=== PATIENT | male | born 1970 | race Caucasian/White ===

== ENCOUNTER 2018-12-14 06:39 | Inpatient (IN) ==
[2018-12-10 09:00] LABS: HEMATOCRIT 46.5 % (42.0-52.0); MCH 32.5 PG (27-31); MCHC 34.4 g/dL (33-37); MCV 94.3 FL (81-99); MPV 10.1 FL (7.4-10.4); RBC 4.93 XMIL (4.7-6.1); RDW 13.4 % (11.5-14.5); WBC 6.31 X1000 (4.8-10.8)
--- NOTE | 2018-12-10 09:11 | EKG Report ---
Test Performed on : 12/10/2018 08:20:32 AM Test Reason : pat Blood Pressure : / mmHG Vent. Rate : 092 BPM Atrial Rate : 092 BPM P-R Int : 152 ms QRS Dur : 082 ms QT Int : 346 ms P-R-T Axes : 023 034 047 degrees QTc Int : 427 ms Normal sinus rhythm. Normal ECG No previous ECGs available Confirmed by Mendoza Carrera MD ([id number]) on 12/10/2018 12:49:14 PM
[2018-12-10 09:54] LABS: AGAP 11; BUN 12 mg/dL (8-22); CALCIUM 8.9 mg/dL (8.8-10.2); CHLORIDE 100 mmol/L (98-107); COSMO 276; CREATININE 0.7 mg/dL (0.7-1.2); ESTIMATED GFR > 60; GLUCOSE 114 mg/dL (70-104); POTASSIUM 3.9 mmol/L (3.5-5.1); SODIUM 138 mmol/L (136-145); TCO2 27 mmol/L (25-35)
[2018-12-14] MEDS ORDERED: PEPCID ONE (06:55)
[2018-12-14] MEDS ORDERED: REGLAN ONE (06:55)
[2018-12-14] MEDS ORDERED: LR 1,000 ML ONE ×2 (06:55→09:02)
[2018-12-14] MEDS ORDERED: ENTEREG ONE (06:55)
[2018-12-14] MEDS ORDERED: INVANZ 1 GM/NS 1 GM/50 ML IVPB ONE (06:55)
[2018-12-14] MEDS ORDERED: LOPRESSOR ONE (07:23)
[2018-12-14] MEDS ORDERED: DIPRIVAN 1% ONE (07:53)
[2018-12-14] MEDS ORDERED: XYLOCAINE-MPF 2% ONE (08:05)
[2018-12-14] MEDS ORDERED: SODIUM CHLORIDE 0.9% 10 ML ONE (08:07)
[2018-12-14] MEDS ORDERED: QUELICIN (DOSE) ONE (08:07)
[2018-12-14] MEDS ORDERED: NORCURON ONE (08:07)
[2018-12-14] MEDS ORDERED: VERSED ONE (08:12)
[2018-12-14] MEDS ORDERED: MARCAINE 0.25% PF/EPI 1:200,000 ONE (09:02)
[2018-12-14] MEDS ORDERED: FENTANYL ONE (09:16)
[2018-12-14] MEDS ORDERED: DECADRON ONE (09:17)
[2018-12-14] MEDS ORDERED: TORADOL ONE (09:17)
[2018-12-14] MEDS ORDERED: ZOFRAN ONE (09:17)
[2018-12-14] MEDS ORDERED: OFIRMEV 1000 MG/ISOTONIC SOLN 1,000 MG/100 ML BOTTLE ONE (09:17)
[2018-12-14] MEDS ORDERED: LTA KIT ONE (09:32)
[2018-12-14 10:02] LABS: URINE SOURCE CATH
[2018-12-14 10:12] LABS: BILIRUBIN URINE NEGATIVE (NEGATIVE); BLOOD URINE NEGATIVE (NEGATIVE); COLOR YELLOW; GLUCOSE URINE NEGATIVE (NEGATIVE); KETONE URINE TRACE mg/dL (NEGATIVE); LEUKOCYTES URINE NEGATIVE (NEGATIVE); NITRITE URINE NEGATIVE (NEGATIVE); PROTEIN URINE 30 mg/dL (NEGATIVE); TURBIDITY URINE CLEAR (CLEAR); UROBILINOGEN URINE NORMAL (NORMAL)
[2018-12-14 10:13] LABS: UR EPITHELIAL CELLS <10 /HPF (<10); URINE BACTERIA NEGATIVE /HPF; URINE RBC <10 /HPF (<10); URINE WBC <10 /HPF (<10)
[2018-12-14] MEDS ORDERED: ROBINUL ONE (10:50)
[2018-12-14] MEDS ORDERED: NEOSTIGMINE ONE (10:51)
[2018-12-14] MEDS: DILAUDID ONE ×2 (11:25→11:30)
[2018-12-14] MEDS ORDERED: NS 1,000 ML ONE (11:56)
[2018-12-14] MEDS ORDERED: ZOFRAN IV PRN (12:13)
[2018-12-14] MEDS: DILAUDID IV PRN ×4 (13:09→23:22)
[2018-12-14] MEDS: NS 1,000 ML IV SCH ×2 (13:13→23:46)
[2018-12-14] MEDS: OFIRMEV 1000 MG/ISOTONIC SOLN 1,000 MG/100 ML BOTTLE IV SCH ×2 (17:01→21:08)
--- NOTE | 2018-12-14 18:53 | OPERATIVE NOTE ---
PROCEDURE DATE: 12/14/2018 PROCEDURE PERFORMED: Laparoscopic assisted cecal resection with ileocolostomy. SURGEON: Ajay Hebert MD. COMPUTER OPERATIONS TECHNICIAN: JERRY Sandoval. 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 POSTOPERATIVE DIAGNOSIS: Villous adenoma of the cecum. DESCRIPTION OF PROCEDURE: Satisfactory general endotracheal anesthesia was achieved. The abdomen was prepped and draped in a sterile fashion. We anesthetized the skin just above the umbilicus. Then used an 11 trocar Optiview technique into the abdominal cavity. We insufflated through this trocar. Under direct visualization, we introduced a 5 trocar in the mid hypogastrium, a 5 trocar in the right lower quadrant and an 11 mm trocar in the midepigastrium. We placed the patient in Trendelenburg and turned him to the left. We identified the cecum. We divided the adhesions to the anterior abdominal wall, then incised along the white line of Toldt, first going caudad to free up the ilium. We then placed the patient in reverse Trendelenburg and went cephalad until we actually freed up the hepatic flexure. We used the LigaSure along the course of the white line of Toldt in order to mobilize the right colon in the ileum. As I said, we did mobilize the hepatic flexure as well. After we had felt that the right colon was adequately mobilized, we could see the duodenum. We then flattened the patient, and I anesthetized the skin in a transverse fashion in the right lower quadrant. We incised the skin, and carried our incision through the subcutaneous fat through Zeke fascia. We exposed the external oblique aponeurosis. We incised it along with some of the muscle. The internal oblique muscle was spread and the transversus muscle was spread. We entered the abdominal cavity. We were able to place our retractors, the cecum was right under us, so we used a Ernst to deliver it out of the abdominal cavity. We had adequate length of ilium and adequate length of right colon. We then cleaned off the ileum and divided it with a MEGHA-80 blue cartridge. We cleaned off the proximal cecum so that we could put our finger through the mesentery and we divided the ilium as well. We then divided the mesentery with the LigaSure and the specimen was placed in the back table. I did inspect the specimen, opened it and the villous lesion was identified within the specimen. I changed gloves at this point. We then laid the right colon next to the ilium, placed a stitch to bring those together. We cut off the corners of each of the respective ends of bowel and then introduced the MEGHA blue cartridge 80 mm long and did a [id number] stapled anastomosis. We placed a 3-0 silk at the opposite end to take the tension off the staple line. We grasped the open ends of bowel with the Allis and used a TA-60 blue cartridge in order to staple off the open end of the bowel. We then used 3-0 silk pop-off's to invert the staple line. We had a good staple [id number] anastomosis, which we then dropped back into the abdominal cavity. We closed the peritoneum with a running 2-0 Polysorb. We closed the transversus with a running 2-0 Polysorb along with the internal oblique muscle. We then closed with the 0. The external oblique aponeurosis with interrupted 0 Polysorb in the [id number] fashion. Subcutaneous tissue was irrigated out. We placed 3-0 Polysorb in the subcutaneous tissue and then closed the skin with wali. We reinsufflated and reintroduced the camera. We looked inside and the anastomosis was okay. There was no evidence of bleeding. We then used a Candelario-Sherine wound closure for the epigastric trocar site and the supraumbilical trocar site, passing a 2-0 Polysorb through the abdominal wall. We then desufflated, removed all our trocars. We secured those 2 fascial stitches, placed by the Candelario-Sherine device. We then closed the skin each in the laparoscopic incisions with 4-0 Polysorb subcuticular stitches. Sterile OpSite's were applied. He tolerated it well. Was sent to the recovery room in satisfactory condition. cc: MD Shivam Shearer DO
[2018-12-14] MEDS: PERIDEX MT SCH (20:58)
[2018-12-14] MEDS: LOVENOX SUBQ SCH (20:58)
[2018-12-14] MEDS: DESYREL PO SCH (20:58)
[2018-12-15] MEDS: DILAUDID IV PRN ×7 (02:24→21:32)
[2018-12-15] MEDS: OFIRMEV 1000 MG/ISOTONIC SOLN 1,000 MG/100 ML BOTTLE IV SCH ×3 (02:24→11:03)
[2018-12-15 06:51] LABS: BASO# 0.01 X1000 (0.0-0.2); BASO% 0.1 % (0.0-0.8); HEMATOCRIT 42.5 % (42.0-52.0); HEMOGLOBIN 14.4 g/dL (14.0-18.0); IMM GRAN# 0.02 X1000 (0.0-0.04); IMM GRAN% 0.2 % (0.0-0.5); LYMPH# 1.07 X1000 (1.2-3.4); LYMPH% 8.9 % (20.5-51.1); MCH 32.6 PG (27-31); MCHC 33.9 g/dL (33-37); MCV 96.2 FL (81-99); MONO# 0.93 X1000 (0.11-0.59); MONO% 7.7 % (1.7-9.3); MPV 10.1 FL (7.4-10.4); NEUT# 10.06 X1000 (1.4-6.5); NEUT% 83.1 % (42.2-75.2); PLT 194 X1000 (130-400); RBC 4.42 XMIL (4.7-6.1); RDW 13.5 % (11.5-14.5); WBC 12.09 X1000 (4.8-10.8)
[2018-12-15 07:10] LABS: AGAP 10; BUN 14 mg/dL (8-22); CALCIUM 8.6 mg/dL (8.8-10.2); CHLORIDE 104 mmol/L (98-107); COSMO 283; CREATININE 0.7 mg/dL (0.7-1.2); ESTIMATED GFR > 60; GLUCOSE 119 mg/dL (70-104); SODIUM 141 mmol/L (136-145); TCO2 27 mmol/L (25-35)
[2018-12-15] MEDS: NS 1,000 ML IV SCH ×3 (08:28→21:32)
[2018-12-15] MEDS: ENTEREG PO SCH ×2 (11:04→21:32)
[2018-12-15] MEDS: LOPRESSOR PO SCH (11:04)
[2018-12-15] MEDS: PERIDEX MT SCH ×2 (11:05→21:32)
[2018-12-15] MEDS: PRINZIDE 10/12.5MG PO SCH (11:05)
[2018-12-15] MEDS: PRAVACHOL PO SCH (21:31)
[2018-12-15] MEDS: DESYREL PO SCH (21:32)
[2018-12-15] MEDS: LOVENOX SUBQ SCH (21:32)
[2018-12-16] MEDS: DILAUDID IV PRN ×4 (02:20→20:16)
--- NOTE | 2018-12-16 06:09 | GENERAL SURGERY PROGRESS NOTE ---
DATE: 12/15/2018 SUBJECTIVE: He is doing well. No fevers, no tachycardia overnight. OBJECTIVE: Blood pressure 139/68. Abdomen is soft. Dressing is clean. LABS: Urine is clear. White count 12, hematocrit 42. Creatinine 0.7. ASSESSMENT AND PLAN: This is a 48-year-old gentleman status post ileocecectomy, doing well. 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 Will discontinue his Elizabeth today. I have encouraged him to be out of bed and ambulating. Plan to advance his diet and let him go home with return of bowel function. cc: MD Ajay Chu MD
[2018-12-16] MEDS: PERIDEX MT SCH ×2 (09:24→20:15)
[2018-12-16] MEDS: LOPRESSOR PO SCH (09:24)
[2018-12-16] MEDS: PRINZIDE 10/12.5MG PO SCH (09:25)
[2018-12-16] MEDS: ENTEREG PO SCH ×2 (09:25→20:15)
[2018-12-16] MEDS: NS 1,000 ML IV SCH ×2 (09:27→20:16)
[2018-12-16] MEDS: PRAVACHOL PO SCH (20:15)
[2018-12-16] MEDS: DESYREL PO SCH (20:15)
[2018-12-16] MEDS: LOVENOX SUBQ SCH (20:16)
--- NOTE | 2018-12-16 21:25 | GENERAL SURGERY PROGRESS NOTE ---
DATE: 12/16/2018 SUBJECTIVE: He is ambulating, pains okay. He is tolerating liquids. He is on Lovenox PPI. He has not had any return of flatus yet. He is on Entereg. OBJECTIVE: Vital Signs: No fevers. No tachycardia. Exam: His incisions are intact, with no cellulitis. His abdomen is obese, mildly distended. ASSESSMENT AND PLAN: A 48-year-old gentleman status post right colectomy. He is doing well overall, but we are just awaiting return of bowel function. He is voiding. When he passes gas we will let him go home. cc: MD Ajay Chu MD
[2018-12-17] MEDS: DILAUDID IV PRN (01:04)
[2018-12-17 07:34] VITALS: BP 135/74
[2018-12-17] MEDS: LOPRESSOR PO SCH (07:44)
[2018-12-17] MEDS: PRINZIDE 10/12.5MG PO SCH (07:44)
[2018-12-17] MEDS: PERIDEX MT SCH (07:44)
--- NOTE | 2018-12-17 10:06 | GENERAL SURGERY PROGRESS NOTE ---
DATE: 12/17/2018 Mr. Purdy is now 3 days after his cecal resection. His temperature is 99.3 degrees, heart rate is 93, blood pressure 133/60. He is passing some liquid stool now. He has been taking his liquid diet. His wounds are fine. He is ready to go home. He knows not lift over 15 pounds. He will return to see me in the office in 4 to 5 days. Activity and diet were discussed. cc: Ajay Hebert MD
== END 2018-12-17 09:35 | disposition home or self-care (01) | DRG 330 ==
LOC: OR 06:39 → EDSTATUS 09:00 → 4N 12:51
PROVIDERS: ADMIT Surgery; ATTEND Surgery
CPT/HCPCS: 80048; 81001; 85025; 85027; 86850; 86900; 86901; 88307; 88313; 93005; 93010; 94761; 94799; A9270; J0131; J0330; J1100; J1170; J1335; J1650; J1885; J2250; J2405; J3010; J7030; J7120